=== PATIENT | female | born 1985 | race Caucasian/White ===

== ENCOUNTER → 2016-03-06 | Outpatient (CLI) | payer OTHER ==
[2016-03-06 12:53] LABS: THYROID STIMULATING HORMONE 0.336 uIu/ml (0.300-4.500)
== END | disposition home or self-care (01) ==
LOC: C.LAB1850 11:17
PROVIDERS: ATTEND Internal Medicine Endocrinology, Diabetes & Metabolism
DX: E03.9 Hypothyroidism, unspecified (principal)

== ENCOUNTER → 2016-04-21 | Outpatient (CLI) | payer OTHER ==
--- NOTE | 2016-04-22 07:40 | DIAGNOSTIC IMAGING REPORT ---
THYROID ULTRASOUND CLINICAL HISTORY: Marely's disease. Hypothyroidism. Thyroid nodule. COMPARISON STUDY: None. TECHNIQUE: Sonography of the thyroid gland was performed. FINDINGS: The right thyroid lobe measures 5.6 x 1.6 x 1.5 cm and the left lobe measures 5.3 x 1.3 x 1.5 cm. The gland is heterogeneous. Note is made of a 0.9 x 0.7 x 0.5 cm echogenic nodule within the lower pole of the left thyroid lobe which contains a coarse calcification. No additional thyroid nodules are identified. IMPRESSION: 1. Mildly enlarged, heterogeneous thyroid gland. 2. 0.9 cm echogenic left lobe thyroid nodule. This nodule does not meet criteria for biopsy. A follow-up ultrasound in 6 months is recommended. Electronically signed by: Vivek Carlos M.D. 04/22/2016 7:39 AM Dictated Date/Time: 04/21/2016 3:55 PM
== END | disposition home or self-care (01) ==
LOC: C.ULTR 14:45
PROVIDERS: ATTEND Internal Medicine Endocrinology, Diabetes & Metabolism
DX: E04.1 Nontoxic single thyroid nodule (principal); E03.9 Hypothyroidism, unspecified; E06.3 Autoimmune thyroiditis